=== PATIENT | male | born 1955 | race Caucasian/White ===

== ENCOUNTER 2024-02-04 09:49 | Inpatient (IN) | payer BC ==
[~2024-02-04] VITALS: Ht 177.8 cm; Wt 86.0 kg
[2024-02-04] MEDS: LIDOcaine 1% W/epiNEPHrine 1:100,000 20ml vial IJ ONE (11:42)
[2024-02-04] MEDS: LIDOcaine 1% 30ml preserv. free vial IJ STA (12:08)
[2024-02-04] MEDS: normal saline 1000ml 1,000 ML IV ONE (12:42)
[2024-02-04] MEDS: morphine 2 MG/ML inj. syringe IV ONE (12:43)
[2024-02-04 12:47] LABS: BASOPHILS # (AUTO) 0.1 X10'3 (0-0.2); BASOPHILS % (AUTO) 1.1 % (0-1); EOSINOPHILS # (AUTO) 0.2 X10'3 (0-0.9); EOSINOPHILS % (AUTO) 1.8 % (0-6); HEMOGLOBIN 15.4 g/dl (14.0-17.9); LYMPHOCYTES # (AUTO) 2.4 X10'3 (1.1-4.8); LYMPHOCYTES % (AUTO) 24.3 % (21-51); MEAN CORPUSCULAR HGB CONC 32.7 g/dL (33.0-36.5); MEAN CORPUSCULAR VOLUME 91.6 FL (78-98); MEAN PLATELET VOLUME 9.5 FL (7.4-10.4); MONOCYTES # (AUTO) 0.7 X10'3 (0-0.9); MONOCYTES % (AUTO) 7.6 % (2-12); NEUTROPHILS # (AUTO) 6.4 X10'3 (1.8-7.7); NEUTROPHILS % (AUTO) 65.2 % (42-75); PLATELET COUNT 291 X10'3 (140-440); RED BLOOD COUNT 5.13 X10'6 (4.70-6.10); RED CELL DISTRIBUTION WIDTH 16.2 % (11.5-14.5); WHITE BLOOD COUNT 9.8 X10'3 (4.5-11.0)
[2024-02-04 13:03] LABS: ALANINE AMINOTRANSFERASE 25 U/L (12-78); ALBUMIN 4.2 G/DL (3.4-5.0); ALBUMIN/GLOBULIN RATIO 0.9 (1.1-1.5); ALKALINE PHOSPHATASE 68 IU/L (46-116); ANION GAP 12 (8-16); ASPARTATE AMINO TRANSFERASE 17 U/L (10-37); BILIRUBIN,TOTAL 0.4 MG/DL (0.1-1.0); BLOOD UREA NITROGEN 18 MG/DL (7-18); BUN/CREATININE RATIO 25.7 (10.0-20.0); CALCIUM 10.1 MG/DL (8.5-10.1); CHLORIDE 104 MMOL/L (99-107); GLUCOSE 108 MG/DL (70-104); POTASSIUM 4.1 MMOL/L (3.5-5.1); SODIUM 139 MMOL/L (135-145); TOTAL CARBON DIOXIDE 23.1 MMOL/L (24-32); TOTAL PROTEIN 8.8 G/DL (6.4-8.2); eCRCL 106 ML/MIN; eGFR > 90 ML/MIN
[2024-02-04 13:04] LABS: BILIRUBIN,DIRECT 0.1 MG/DL (0-0.3)
[2024-02-04] MEDS ORDERED: potassium Cl 20 mEq SR tablet PO PRN ×2 (14:05)
[2024-02-04] MEDS ORDERED: magnesium Cl slow-release 64mg tablet PO PRN (14:05)
[2024-02-04] MEDS ORDERED: GLIP5TAB23 PO (14:05)
[2024-02-04] MEDS ORDERED: morphine 2 MG/ML inj. syringe IV PRN (14:05)
[2024-02-04] MEDS ORDERED: diphenhydrAMINE 25mg capsule PO PRN (14:05)
[2024-02-04] MEDS ORDERED: magnesium sulf-water 4G/100mL 100 ML IV PRN (14:05)
[2024-02-04] MEDS ORDERED: acetaminophen 325mg tablet PO PRN ×2 (14:05)
[2024-02-04] MEDS ORDERED: potassium Cl 40MEQ/1/2NS 520ml 520 ML IV PRN (14:05)
[2024-02-04] MEDS ORDERED: EZET10TA48 PO (14:05)
[2024-02-04] MEDS ORDERED: ATOR-2 PO (14:05)
[2024-02-04] MEDS ORDERED: magnesium sulf-water 2g/50mL 50 ML IV PRN (14:05)
[2024-02-04] MEDS ORDERED: bisacodyl 10mg suppository rectal RC PRN (14:05)
[2024-02-04] MEDS ORDERED: mag hydrox/Alum hydrox/simeth 30ml oral suspension PO PRN (14:05)
[2024-02-04] MEDS ORDERED: LISI5TAB22 PO (14:05)
[2024-02-04] MEDS ORDERED: EMPA1TAB PO (14:05)
[2024-02-04] MEDS ORDERED: magnesium hydroxide 30ml (MOM) UD suspension PO PRN (14:05)
[2024-02-04] MEDS ORDERED: HYDROcodone/acetaminophen 5mg/325mg tablet PO PRN (14:05)
[2024-02-04] MEDS ORDERED: METF-900 PO (14:05)
[2024-02-04] MEDS: linezolid 600mg/300ml PREMIX 300 ML IV SCH (14:26)
[2024-02-04] MEDS: morphine 2 MG/ML inj. syringe IV PRN (14:26)
[2024-02-04] MEDS: normal saline 1000ml 1,000 ML IV SCH (14:27)
[2024-02-04 14:32] LABS: HEMOGLOBIN A1C 7.9 % (4.5-6.2)
[2024-02-04] MEDS: ondansetron/PF 4mg/2ml inj IV PRN (15:07)
[2024-02-04] MEDS: HYDROmorphone 1 mg/ml syringe IV PRN (15:08)
[2024-02-04 18:03] LABS: BILIRUBIN,URINE NEGATIVE (Neg); CLARITY,URINE CLEAR (Clear); COLOR,URINE YELLOW (Yellow); GLUCOSE, URINE >=1000 mg/dl (Neg); KETONES,URINE NEGATIVE (Neg); LEUKOCYTE ESTERASE ,URINE NEGATIVE (Neg); OCCULT BLOOD,URINE TRACE-INTACT (Neg); PH,URINE 5.5 (4.8-8.0); PROTEIN,URINE NEGATIVE (Neg); UROBILINOGEN,URINE 0.2 E.U/dL (0.2-1.0)
[2024-02-04 18:13] LABS: NITRITES, URINE NEGATIVE (Neg); UA COLLECTION TYPE VOIDED
[2024-02-04 18:14] LABS: BACTERIA,URINE NONE SEEN /HPF (Neg); RBC,URINE 0-2 /HPF (0-2); SQUAMOUS EPITHELIAL CELL,UR FEW /LPF (FEW); WBC,URINE NONE SEEN /HPF (0-4)
[2024-02-04] MEDS: docusate sod 100mg capsule PO SCH (20:00)
[2024-02-04] MEDS: K and/or MAG REPLACEMENT MC SCH (20:00)
[2024-02-04] MEDS: heparin, porcine 5000 units/ml vial SQ SCH (21:29)
[2024-02-04 23:45] VITALS: BP 143/74; PULSE 66; RESP 18; TEMP 98.8; O2SAT 96
[2024-02-04] MEDS: temazepam 15mg capsule PO ONE (23:55)
[2024-02-05] VITALS (13 sets, daily range): BP systolic 113–134; BP diastolic 45–73; PULSE 67–91; RESP 12–18; TEMP 98.2; O2SAT 94–99
[2024-02-05] MEDS: HYDROcodone/acetaminophen 10/325mg tab PO PRN (05:24)
[2024-02-05] MEDS: atorvastatin 20mg tablet PO SCH (08:35)
[2024-02-05] MEDS: ezetimibe 10mg tablet PO SCH (08:35)
[2024-02-05] MEDS: lisinopril 5mg tablet PO SCH (08:35)
[2024-02-05 09:17] LABS: BASOPHILS # (AUTO) 0.1 X10'3 (0-0.2); BASOPHILS % (AUTO) 0.8 % (0-1); EOSINOPHILS # (AUTO) 0.1 X10'3 (0-0.9); EOSINOPHILS % (AUTO) 1.7 % (0-6); HEMATOCRIT 38.3 % (42.0-52.0); HEMOGLOBIN 12.4 g/dl (14.0-17.9); LYMPHOCYTES # (AUTO) 1.6 X10'3 (1.1-4.8); LYMPHOCYTES % (AUTO) 19.2 % (21-51); MEAN CORPUSCULAR HEMOGLOBIN 29.4 PG (27.0-31.0); MEAN CORPUSCULAR HGB CONC 32.3 g/dL (33.0-36.5); MEAN CORPUSCULAR VOLUME 91.1 FL (78-98); MEAN PLATELET VOLUME 9.7 FL (7.4-10.4); MONOCYTES # (AUTO) 0.8 X10'3 (0-0.9); MONOCYTES % (AUTO) 9.8 % (2-12); NEUTROPHILS # (AUTO) 5.8 X10'3 (1.8-7.7); NEUTROPHILS % (AUTO) 68.5 % (42-75); PLATELET COUNT 237 X10'3 (140-440); RED BLOOD COUNT 4.21 X10'6 (4.70-6.10); RED CELL DISTRIBUTION WIDTH 15.4 % (11.5-14.5); WHITE BLOOD COUNT 8.4 X10'3 (4.5-11.0)
[2024-02-05 09:19] LABS: ALANINE AMINOTRANSFERASE 22 U/L (12-78); ALBUMIN 3.1 G/DL (3.4-5.0); ALBUMIN/GLOBULIN RATIO 0.9 (1.1-1.5); ALKALINE PHOSPHATASE 53 IU/L (46-116); ANION GAP 7 (8-16); ASPARTATE AMINO TRANSFERASE 14 U/L (10-37); BILIRUBIN,TOTAL 0.3 MG/DL (0.1-1.0); BLOOD UREA NITROGEN 13 MG/DL (7-18); BUN/CREATININE RATIO 18.6 (10.0-20.0); CHLORIDE 105 MMOL/L (99-107); CHOL/HDL RATIO 3.8 (0.00-4.99); CHOLESTEROL 124 MG/DL (0-200); GLUCOSE 95 MG/DL (70-104); HDL CHOLESTEROL 33 MG/DL (35-60); LDL CHOLESTEROL 67 MG/DL (50-100); MAGNESIUM 1.9 MG/DL (1.5-2.4); PHOSPHORUS 3.5 MG/DL (2.3-4.5); POTASSIUM 4.4 MMOL/L (3.5-5.1); SODIUM 139 MMOL/L (135-145); TOTAL CARBON DIOXIDE 26.6 MMOL/L (24-32); TOTAL PROTEIN 6.4 G/DL (6.4-8.2); TRIGLYCERIDES 126 MG/DL (20-135); eCRCL 106 ML/MIN; eGFR > 90 ML/MIN
[2024-02-05] MEDS ORDERED: labetalol 20mg/4ml (5mg/ml) syringe IV PRN (10:40)
[2024-02-05] MEDS ORDERED: ondansetron/PF 4mg/2ml inj IV PRN (10:40)
[2024-02-05] MEDS ORDERED: fentaNYL/PF 50MCG/1 ML 2ML syringe IV PRN (10:40)
[2024-02-05] MEDS ORDERED: hydrALAZINE 20mg/ml inj. IV PRN (10:40)
[2024-02-05] MEDS ORDERED: ringers solution, lacted 1,000 ML IV SCH (10:40)
[2024-02-05] MEDS ORDERED: vancomycin 1,000mg inj ONE (12:48)
[2024-02-05] MEDS: BUPIVAcaine 2.5mg/ml inj 50ml vial (contains preservative) ONE (12:48)
[2024-02-05] MEDS ORDERED: sevoflurane 250ml liquid IH ONE (13:39)
[2024-02-05] MEDS ORDERED: fentaNYL/PF 50MCG/1 ML 2ML syringe ONE (13:43)
[2024-02-05] MEDS ORDERED: propofol inj 20 ML IV ONE (13:47)
[2024-02-05] MEDS ORDERED: LIDOcaine 2% (20mg/ml) 5ml vial ONE (13:47)
[2024-02-05] MEDS: fentaNYL/PF 50MCG/1 ML 2ML syringe IV PRN (14:29)
[2024-02-05] MEDS: morphine 4 MG/ML inj SYRINge IV PRN (14:37)
[2024-02-05] MEDS: morphine 2 MG/ML inj. syringe IV PRN (15:04)
[2024-02-05] MEDS: acetaminophen 1,000mg/100ml IV 100 ML IV ONE (15:08)
[2024-02-05] MEDS ORDERED: LINE600T11 CORPAK (17:07)
[2024-02-05] MEDS ORDERED: HYDR-3965 PO (18:21)
[2024-02-05] MEDS ORDERED: ASPI-1 PO (19:38)
== END 2024-02-05 19:15 | disposition home or self-care (01) | DRG 605 ==
LOC: ER 09:49 → ED HOLD 14:05 → ORTHO 4S 23:38
PROVIDERS: ADMIT Family Medicine; ATTEND Family Medicine
PROC: 0JCR3ZZ Extirpation of Matter from Left Foot Subcutaneous Tissue and Fascia, Percutaneous Approach (ICD-10-PCS; principal; 2024-02-05 13:39)
DX: S90.852A Superficial foreign body, left foot, initial encounter (principal); X58.XXXA Exposure to other specified factors, initial encounter; L08.9 Local infection of the skin and subcutaneous tissue, unspecified; E11.9 Type 2 diabetes mellitus without complications; E78.5 Hyperlipidemia, unspecified; I10 Essential (primary) hypertension; Z96.651 Presence of right artificial knee joint; I25.10 Atherosclerotic heart disease of native coronary artery without angina pectoris; Z87.891 Personal history of nicotine dependence; Y93.89 Activity, other specified; Y92.89 Other specified places as the place of occurrence of the external cause; Y99.8 Other external cause status; Z79.82 Long term (current) use of aspirin
CPT/HCPCS: 36415; 71045; 73630; 80048; 80053; 80061; 80076; 81001; 82948; 83036; 83605; 83735; 84100; 84145; 85025; 87040; 87081; 93005; 96360; 99285; A4618; A6446; A6449; A7000; G0378; J0131; J1100; J1170; J1644; J2020; J2270; J2405; J2704; J3010; J3370; J3490; J7030; J7120